=== PATIENT | female | born 1970 | race Two or more races ===

== ENCOUNTER → 2018-02-11 | Outpatient (CLI) | payer OTHER | END | disposition home or self-care (01) | LOC: RAD 501 14:47 | DX: M22.41 Chondromalacia patellae, right knee (principal); M22.42 Chondromalacia patellae, left knee ==

== ENCOUNTER 2018-11-22 10:49 | Outpatient (CLI) | payer OTHER | END 2018-11-22 11:01 | disposition home or self-care (01) | LOC: SONOGRAMA 10:49 | DX: M19.071 Primary osteoarthritis, right ankle and foot (principal) ==

== ENCOUNTER 2019-01-13 10:07 | Outpatient (CLI) | payer OTHER | END 2019-01-13 12:33 | disposition home or self-care (01) | LOC: MRI 10:07 | DX: S93.401S Sprain of unspecified ligament of right ankle, sequela (principal) | CPT/HCPCS: 73721 ==

== ENCOUNTER 2019-01-29 11:21 | Outpatient (CLI) | payer OTHER ==
[~2019-01-29] VITALS: Ht 154.9 cm; Wt 68.0 kg
[2019-01-29] MEDS ORDERED: CLARITIN10 MG PO (13:32)
[2019-01-29] MEDS ORDERED: CEFUROXIME500 MG PO ×2 (13:32→13:34)
[2019-01-29] MEDS ORDERED: FLONASE16 GM NASAL (13:32)
== END 2019-01-29 12:30 | disposition home or self-care (01) ==
LOC: OFIC 805 11:21
DX: J31.0 Chronic rhinitis (principal); G44.001 Cluster headache syndrome, unspecified, intractable; J32.8 Other chronic sinusitis

== ENCOUNTER 2020-05-05 10:56 | Outpatient (CLI) | payer OTHER ==
[~2020-05-05 10:56] MED LIST: CEFUROXIME500 MG PO; CLARITIN10 MG PO; FLONASE16 GM NASAL
== END 2020-05-05 22:22 | disposition home or self-care (01) ==
LOC: PPH VACUNA 10:56
DX: Z23 Encounter for immunization (principal)

== ENCOUNTER 2021-02-02 08:00 | Outpatient (CLI) | payer OTHER | END 2021-02-02 08:30 | disposition home or self-care (01) | LOC: PPH VACUNA 08:00 | PROVIDERS: ATTEND Emergency Medicine Pediatric Emergency Medicine | DX: Z23 Encounter for immunization (principal) ==

== ENCOUNTER 2021-03-21 15:54 | Outpatient (CLI) | payer OTHER | END 2021-03-21 16:00 | disposition home or self-care (01) | LOC: RAD 15:54 | PROVIDERS: ATTEND Internal Medicine Rheumatology | DX: M15.0 Primary generalized (osteo)arthritis (principal) ==

== ENCOUNTER 2021-04-12 13:12 | Outpatient (CLI) | payer OTHER | END 2021-04-12 13:13 | disposition home or self-care (01) | LOC: NUCLEAR 13:12 | PROVIDERS: ATTEND Internal Medicine Rheumatology | DX: M81.0 Age-related osteoporosis without current pathological fracture (principal) ==

== ENCOUNTER 2021-11-15 12:11 | Outpatient (CLI) | payer OTHER | END 2021-11-15 12:30 | disposition home or self-care (01) | LOC: MAMO-SONO 12:11 | PROVIDERS: ATTEND Obstetrics & Gynecology | DX: N63.11 Unspecified lump in the right breast, upper outer quadrant (principal); N63.22 Unspecified lump in the left breast, upper inner quadrant; Z12.31 Encounter for screening mammogram for malignant neoplasm of breast ==

== ENCOUNTER 2022-03-22 10:11 | Outpatient (CLI) | payer OTHER | END 2022-03-22 10:31 | disposition home or self-care (01) | LOC: MRI 10:11 | PROVIDERS: ATTEND Internal Medicine Gastroenterology | DX: R19.03 Right lower quadrant abdominal swelling, mass and lump (principal) | CPT/HCPCS: 72196; 74181; 74182 ==

== ENCOUNTER 2023-03-06 10:12 | Outpatient (CLI) | payer OTHER | END 2023-03-06 10:37 | disposition home or self-care (01) | LOC: MRI 10:12 | PROVIDERS: ATTEND Internal Medicine Rheumatology | DX: M50.11 Cervical disc disorder with radiculopathy, high cervical region (principal); M50.13 Cervical disc disorder with radiculopathy, cervicothoracic region; M50.31 Other cervical disc degeneration, high cervical region; M50.33 Other cervical disc degeneration, cervicothoracic region; G56.01 Carpal tunnel syndrome, right upper limb; M05.79 Rheumatoid arthritis with rheumatoid factor of multiple sites without organ or systems involvement; Z88.2 Allergy status to sulfonamides; Z88.6 Allergy status to analgesic agent | CPT/HCPCS: 72141 ==

== ENCOUNTER 2023-06-14 10:58 | Outpatient (CLI) | payer OTHER | END 2023-06-14 11:01 | disposition home or self-care (01) | LOC: RAD 10:58 | PROVIDERS: ATTEND Physical Medicine & Rehabilitation | DX: M25.562 Pain in left knee (principal) ==

== ENCOUNTER 2024-09-04 16:05 | Emergency (ER) | payer OTHER ==
[~2024-09-04] VITALS: Ht 152.4 cm; Wt 72.6 kg
[2024-09-04] MEDS ORDERED: 0.9 % SODIUM CHLORIDE 1,000 ML IV STA (19:06)
[2024-09-04] MEDS ORDERED: MORPHINE SULFATE 2 MG/ML SYRINGE IV ONE (19:15)
[2024-09-04] MEDS ORDERED: FAMOTIDINE/PF 20 MG/2 ML VIAL IV ONE ×2 (19:15→22:30)
[2024-09-04] MEDS ORDERED: FAMOTIDINE/PF 20 MG/2 ML VIAL ONE ×2 (20:19→22:33)
[2024-09-04] MEDS ORDERED: ONDANSETRON HCL 2 MG/ML VIAL ONE (20:19)
[2024-09-04] MEDS ORDERED: ONDANSETRON HCL 2 MG/ML VIAL IV ONE (20:30)
[2024-09-04 20:52] LABS: HEMATOCRIT 40.6 % (36.0-45.00); HEMOGLOBIN 13.4 g/dL (12.0-15.00); MEAN CELL VOLUME 88.1 fL (80.00-100.00); MEAN CORPUSCULAR HEMOGLOBIN 29.1 pg (27.00-32.0); PLATELET COUNT 271 K/uL (150-450); RED CELL DISTRIBUTION WIDTH 13.6 % (11.5-14.5)
[2024-09-04 21:11] LABS: ALBUMIN 3.8 gm/dL (3.4-5.0); BILIRUBIN TOTAL 0.44 mg/dL (0.3-1.2); CALCIUM 10.1 mg/dL (8.5-10.1); CREATININE SERUM 0.67 mg/dL (0.55-1.02); GFR 91.72; GLOBULINA 5.4 G/DL (2.4-3.5); TOTAL PROTEIN 9.2 gm/dL (6.4-8.2)
[2024-09-04] MEDS ORDERED: MORPHINE SULFATE 2 MG/ML CARTRIDGE IV ONE (22:30)
== END 2024-09-05 00:12 | disposition home or self-care (01) ==
LOC: ER 16:06
PROVIDERS: Emergency Medicine
DX: K52.89 Other specified noninfective gastroenteritis and colitis (principal); Z88.2 Allergy status to sulfonamides; Z88.6 Allergy status to analgesic agent

== ENCOUNTER 2024-09-09 07:09 | Outpatient (CLI) | payer OTHER | END 2024-09-09 07:12 | disposition home or self-care (01) | LOC: SONOGRAMA 07:09 | PROVIDERS: ATTEND Specialist | DX: R10.11 Right upper quadrant pain (principal) ==

== ENCOUNTER 2024-09-15 07:18 | Outpatient (CLI) | payer OTHER | END 2024-09-15 07:30 | disposition home or self-care (01) | LOC: MRI 07:18 | PROVIDERS: ATTEND Internal Medicine Gastroenterology | DX: R94.5 Abnormal results of liver function studies (principal); K82.9 Disease of gallbladder, unspecified | CPT/HCPCS: 74181 ==

== ENCOUNTER 2025-01-19 10:32 | Outpatient (CLI) | payer OTHER | END 2025-01-19 10:34 | disposition home or self-care (01) | LOC: RAD 10:32 | DX: M54.2 Cervicalgia (principal) ==